=== PATIENT | female | born 1950 | race Caucasian/White ===

== ENCOUNTER 2023-10-11 17:22 | Emergency (ER) | payer MEDICARE, BC ==
[2023-10-11] MEDS ORDERED: Acetaminophen 500 MG TAB ONE (18:38)
== END 2023-10-11 19:14 | disposition home or self-care (01) ==
LOC: MADERS 17:22
DX: S09.90XA Unspecified injury of head, initial encounter (principal); S61.012A Laceration without foreign body of left thumb without damage to nail, initial encounter; S01.81XA Laceration without foreign body of other part of head, initial encounter; S60.221A Contusion of right hand, initial encounter; S80.02XA Contusion of left knee, initial encounter; S80.01XA Contusion of right knee, initial encounter; I10 Essential (primary) hypertension; E78.5 Hyperlipidemia, unspecified; I48.91 Unspecified atrial fibrillation; K57.92 Diverticulitis of intestine, part unspecified, without perforation or abscess without bleeding; W01.10XA Fall on same level from slipping, tripping and stumbling with subsequent striking against unspecified object, initial encounter; Z79.899 Other long term (current) drug therapy
CPT/HCPCS: 70450; 70486; 72125